=== PATIENT | female | born 1975 | race Caucasian/White ===

== ENCOUNTER 2025-08-15 11:44 | Emergency (ER) | payer MEDICARE, MEDICAID, SELFPAY ==
[2025-08-15 11:45] VITALS: BP 132/76; PULSE 60; RESP 17; TEMP 37; O2SAT 96
[2025-08-15 11:47] VITALS: BP 132/76; PULSE 60; RESP 20; TEMP 37; O2SAT 97; BMI 48.0
--- NOTE | 2025-08-15 11:50 | RAD_ITS ---
PROCEDURE: RAD/Chest 1 View (Portable)
--- NOTE | 2025-08-15 11:50 | ED.VIS.CHEST ---
HPI History of Present Illness Chief Complaint: Chest Pain Detail of Chief Complaint: Chest pain Informant: patient Narrative Narrative: Patient presents to the emergency department complaint chest pain that she believes to be anxiety related. She is currently in a alf because she cannot care for herself due to her mental illness. She states that she think she was having an anxiety attack about 2 hours ago where she was having chest pain and some shortness of breath and felt shaky. They gave her her anxiety medications and her symptoms of currently resolved. She has no heart history otherwise. She does have history of COPD and continues to smoke. She has history of hypothyroidism with prior prior thyroidectomy. Patient tells me that she is currently being treated for pneumonia and has a mild cough but really nonproductive. She denies fevers. PFSH PFSH Medical History Neuroleptic induced parkinsonism Bipolar disorder Schizophrenia Depression Anxiety Hypothyroidism COPD (chronic obstructive pulmonary disease) Asthma Smoker Home Medications ?Medication ?Instructions ?Recorded ?Last Taken ?Type albuterol sulfate 2.5 mg/3 mL 2.5 mg inhalation Q6H PRN COPD 08/15/25 Unknown History (0.083 %) solution for nebulization albuterol sulfate 90 mcg/actuation 2 inh inhalation Q4H PRN COPD 08/15/25 Unknown History aerosol inhaler (Ventolin HFA) amoxicillin 875 mg-potassium 1 tab PO BID pneumonia 08/15/25 Unknown History clavulanate 125 mg tablet benzocaine 20 % mucosal gel 1 applic mucous membrane BID PRN 08/15/25 Unknown History infected tooth benztropine 0.5 mg tablet 0.5 mg PO BID Parkinsons 08/15/25 Unknown History bisacodyl 10 mg rectal suppository 10 mg TN DAILY PRN constipation 08/15/25 Unknown History Allergy/AdvReac Type Severity Reaction Status Date / Time No Known Allergies Allergy Verified 08/15/25 11:54 Social History Smoking Status: Current every day smoker tobacco type: cigarettes ROS ROS ED Review of Systems ROS Unobtainable: other Constitutional Constitutional ED: Reports lethargy; Denies chills, fever(s), sweats or weight loss Eyes Eyes: Denies blurry vision, change in vision or diplopia ENT ENT ED: Denies rhinorrhea or sore throat Cardiovascular Cardiovascular: Reports chest pain; Denies orthopnea or racing heartbeat Respiratory/Chest Respiratory/Chest: Reports cough and dyspnea; Denies dyspnea on exertion, orthopnea or sputum Gastrointestinal Gastrointestinal: Denies abdominal pain, diarrhea, nausea or vomiting Genitourinary Genitourinary ED: Denies dysuria, hematuria or urinary frequency Musculoskeletal Musculoskeletal: Denies arthralgias, back pain, myalgias or neck pain Integumentary Denies abscess, Abrasions or rash Neurologic Neurologic: Denies headache(s) or weakness Psychiatric Psychiatric: Denies anxiety, depression or suicidal thoughts Endocrine Endocrinology: Denies polydipsia, polyphagia or polyuria Hematologic/Lymphatic Hematologic/Lymphatic: Denies easy bleeding, easy bruising or lymphadenopathy Allergic/Immunologic Allergic/Immunologic ED: Denies mouth swelling, tongue swelling or urticaria EXAM Physical Exam Const Vital Signs: 08/15/25 11:45 08/15/25 11:47 08/15/25 12:30 Temperature 98.6 F 98.6 F Temperature Source Oral Oral Pulse Rate 60 60 Respiratory Rate 17 20 H Blood Pressure 132/76 H 132/76 H 153/143 H Blood Pressure Mean 94 94 146 Pulse Ox 96 97 97 Oxygen Delivery Method Room Air Room Air Room Air Positive well nourished and well developed General Appearance ED: well developed and NAD HEENT Reports TM's clear and moist mucous membranes normocephalic and atraumatic; Negative for trauma or tenderness Tympanic Membrane ED: Yes TM's clear Eyes PERRL and EOMs intact bilaterally General Eye ED: Negative for pale conjunctiva or scleral icterus Neck no lymphadenopathy, supple and no JVD General: Negative for tenderness Chest Wall inspection of chest normal and palpation of chest normal Chest: Negative for tenderness Resp normal respiratory effort Resp Narrative: Expiratory wheezes noted bilaterally. No accessory muscle use or retractions. No conversational dyspnea Effort and Inspection: Negative for respiratory distress or pain with movement Auscultation: wheezes; Negative for rhonchi or diminished lung sounds Cardio regular rate, regular rhythm, S1 normal heart sound, S2 normal heart sound and no murmurs Peripheral Pulses: pulses 2+ throughout GI normal to inspection, nondistended, normoactive bowel sounds, soft to palpation, non-tender, non-distended and no masses Back/Spine no CVA tenderness and no thoracic nor lumbar tenderness Extremity normal to inspection General Extremety ED: Negative for edema General Extremity: Negative for edema Neuro oriented x3, CN's II-XII intact bilaterally, no sensory deficits noted and gait normal Sensorium / Orientation: awake, alert, oriented to person, oriented to place and oriented to time Motor Exam: strength 5/5 throughout and strength abnormal Psych mental status grossly normal Skin no rashes or lesions noted and no wounds MDM MDM MDM Narrative Medical decision making narrative: Patient presents with chest pain that she believes may have been anxiety related. Currently symptom-free. No history of coronary artery disease. Clinically looks well. IV line established. EKG obtained arrival showed sinus rhythm with rate of 56 bpm with LVH. CBC with differential showed a white count of 11.9 with hemoglobin 13.5 and platelet count of 357. Chemistries unremarkable. First troponin normal at 14. Chest x-ray unremarkable. 2-hour delta troponin also was normal at 12. At this point suspect likely anxiety reaction as the patient had also indicated. Do not suspect acute coronary syndrome. I think she is safe to discharge home. Lab Data Attestation: I reviewed the patient's lab results. Labs: Laboratory Results - last 24 hr 08/15/25 08/15/25 12:12 13:45 WBC 11.9 H RBC 3.82 L Hgb 13.5 Hct 38.7 MCV 101.3 H MCH 35.3 H MCHC 34.9 RDW Std Deviation 46.2 H RDW Coeff of Juan 12.4 Plt Count 357 MPV 9.2 Immature Gran % (Auto) 0.600 Neut % (Auto) 68.8 Lymph % (Auto) 22.3 [place] % (Auto) 5.1 Eos % (Auto) 2.6 Baso % (Auto) 0.6 Absolute Neuts (auto) 8.2 H Absolute Lymphs (auto) 2.64 Nucleated RBC % 0 Sodium 140 Potassium 4.2 Chloride 104 Carbon Dioxide 23.6 Anion Gap 12 BUN 13 Creatinine 1.08 Estim Creat Clear Calc 88.13 Est GFR (MDRD) Non-Af 63 BUN/Creatinine Ratio 12.1 Glucose 137 H Calcium 10.1 Troponin T High Sens 14 Troponin T Hi Sens 2 Hr 12 Radiography Diagnostic Testing: Clinical Impression(s) from Imaging Studies Chest X-Ray 08/15/25 11:50 IMPRESSION: Examination limited by AP portable technique, patient motion, overlying densities, and patient body habitus. Lungs are likely clear of acute disease. No pleural effusion or pneumothorax is noted. The cardiomediastinal silhouette is remarkable for a somewhat tortuous aorta; no evidence of cardiomegaly. No acute osseous change is seen. Reading Location: [place] [id number] 1 view chest x-ray obtained interpreted by myself as no evidence of infiltrate or pneumothorax or acute disease process. Radiology in agreement. EKG Initial EKG: Attestation: I personally reviewed and interpreted this EKG as follows: Comments: Sinus rhythm with rate of 56 bpm with LVH noted Discharge Plan Triage Chief Complaint: Chest Pain ED Provider: Viky Forbes Dx/Rx/DC Orders Clinical Impression: Chest pain, Anxiety Instructions: ED Anxiety Reaction, ED Chest Pain, Uncertain Cause Prescriptions: No Action albuterol sulfate [Ventolin HFA] 90 mcg/actuation HFA aerosol inhaler 2 inh inhalation Q4H PRN (Reason: COPD) albuterol sulfate 2.5 mg /3 mL (0.083 %) solution for nebulization 2.5 mg inhalation Q6H PRN (Reason: COPD) amoxicillin-pot clavulanate 875-125 mg tablet 1 tab PO BID benzocaine 20 % gel 1 applic mucous membrane BID PRN (Reason: infected tooth) benztropine 0.5 mg tablet 0.5 mg PO BID bisacodyl 10 mg suppository 10 mg TN DAILY PRN (Reason: constipation) Primary Care Provider: Jewels Beck Referrals: Jewels Beck MD [Primary Care Provider, Family Practice] - 3-5 Days Print Language: Ivorian
[2025-08-15] MEDS: 0.9% Normal Saline (1000mL) 1,000 ML 150 ML IV (12:09)
[2025-08-15] MEDS: Nicotine 4mg Gum (PBKC) 4 MG GUM PO ×3 (12:14→14:52)
[2025-08-15 12:30] VITALS: BP 153/143; O2SAT 97
[2025-08-15 12:36] LABS: Hematocrit 38.7 % (37-47); Hemoglobin 13.5 g/dL (12.0-15.0); Immature Granulocytes Count 0.070 X10^3/uL (0.0-0.0); Mean Corp Hgb Conc 34.9 g/dL (32-36); Mean Corpuscular Volume 101.3 fL (81-99); Mean Platelet Vol. 9.2 fl (6.2-12.0); NRBC Flagged by Analyzer 0 % (0-5); Platelet Count 357 K/mm3 (150-450); RBC Distribution Width CV 12.4 % (11.6-14.6); RBC Distribution Width SD 46.2 fl (35.1-43.9); Red Blood Count 3.82 M/mm3 (4.2-5.4); White Blood Count 11.9 K/mm3 (4.4-11.0)
[2025-08-15 13:14] LABS: Troponin T High Sensitivity 14 ng/L (<=14)
--- NOTE | 2025-08-15 13:24 | ED.RN ---
pt refused most of the IV infusion.
[2025-08-15 13:32] LABS: Anion Gap 12 (5-15); BUN 13 mg/dL (4-19); BUN/Creat Ratio 12.1 RATIO (10-20); Calcium,Total 10.1 mg/dL (7.6-11.0); Carbon Dioxide 23.6 mmol/L (21.0-32.0); Chloride 104 mmol/L (98-108); Estimated Creatinine Clearance 88.13 ml/min (50-250); Glucose 137 mg/dL (70-99); Potassium 4.2 mmol/L (3.3-5.1)
[2025-08-15 14:18] LABS: Troponin T High Sens 2 HR 12 ng/L (<=14)
--- NOTE | 2025-08-15 14:46 | ED.RN ---
pt refusing vitals. Requesting to wait in waiting room but this RN concerned pt. is a risk of leaving facility. Her ride from [place] will be here to pick her up at [facility] 3;30pm. Pt. has been given meal tray, snacks and nicotine gum.
--- NOTE | 2025-08-15 15:15 | ED.RN ---
1430Spoke with Bianka zarate [facility], their van/bus will be here in about 45 minutes. pt was informed.
== END 2025-08-15 16:00 | disposition home or self-care (01) ==
PROVIDERS: Emergency Provider Emergency Medicine; PCP Hospitalist; Visit Provider Emergency Medicine
DX: R07.9 Chest pain, unspecified (principal); G20.C Parkinsonism, unspecified; J44.9 Chronic obstructive pulmonary disease, unspecified; F17.210 Nicotine dependence, cigarettes, uncomplicated; F41.9 Anxiety disorder, unspecified; Z79.899 Other long term (current) drug therapy
CPT/HCPCS: 71045; 80048; 84484; 85025; 93005; 96360; 99285; A4216